=== PATIENT | male | born 1975 | race Caucasian/White ===

== ENCOUNTER 2022-05-27 08:12 | Emergency (ER) | payer OTHER, BC ==
[2022-05-27 08:26] VITALS: BP 141/87; PULSE 81; RESP 18; TEMP 97.7; BMI 27.3
[2022-05-27] MEDS ORDERED: KETOROLAC TROMETHAMINE 30 MG/1 ML VIAL IM ONE (08:43)
[2022-05-27] MEDS ORDERED: METHOCARBAMOL 500 MG TABLET PO ONE (08:44)
[2022-05-27] MEDS ORDERED: LIDOCAINE 5% TOPICAL PATCH TP ONE (08:44)
[2022-05-27] MEDS ORDERED: LIDOCAINE 5% TOPICAL PATCH ONE (08:51)
[2022-05-27] MEDS ORDERED: METHOCARBAMOL 500 MG TABLET ONE (08:52)
[2022-05-27] MEDS ORDERED: KETOROLAC TROMETHAMINE 30 MG/1 ML VIAL ONE (08:52)
== END 2022-05-27 09:28 | disposition home or self-care (01) ==
LOC: JER 08:12 → JERFT 08:12
PROC: 3E0233Z Introduction of Anti-inflammatory into Muscle, Percutaneous Approach (ICD-10-PCS; principal; 2022-05-27)
DX: S16.1XXA Strain of muscle, fascia and tendon at neck level, initial encounter (principal); X50.0XXA Overexertion from strenuous movement or load, initial encounter
CPT/HCPCS: 72040-TC; 99284-25